=== PATIENT | female | born 1965 | race Hispanic/Latino ===

== ENCOUNTER 2017-08-19 12:20 | Emergency (ER) | payer BC ==
[2017-08-19 12:22] VITALS: PULSE 64; RESP 18; TEMP 98; O2SAT 100
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
[2017-08-19 12:48] VITALS: BP 145/95
== END 2017-08-19 12:48 | disposition home or self-care (01) ==
LOC: H.ER 12:20
DX: M54.2 Cervicalgia (principal)